=== PATIENT | female | born 1980 | race African-American/Black ===

== ENCOUNTER 2019-02-20 16:28 | Emergency (ER) | payer OTHER ==
[~2019-02-20] VITALS: Ht 152.4 cm; Wt 64.0 kg
[~2019-02-20 16:28] MED LIST: IBUPROFEN600 MG ORAL; NKM
[2019-02-20] MEDS ORDERED: PRENATAL 19 TA1 EAC1 PO (16:42)
--- NOTE | 2019-02-20 16:54 | Emergency Room Report ---
History of Present Illness General Chief Complaint: Complications Source: Patient Present Illness HPI Patient is a 39-year-old female who is G2, P1 at approximately 6 months . Patient presented after a mechanical fall. Patient reports falling out of bed. She does not report falling onto her stomach. She reports having some decreased movement. She denies any vaginal bleeding. She had not been having any uterine contractions. She reports having some vaginal discomfort which she describes a pressure sensation. She denies any leakage of fluid. She is scheduled to deliver at [facility]. Allergies: Coded Allergies: No Known Allergies (Unverified , 02/20/16) Patient History Past Medical History: see triage record Last Menstrual Period: 09/2018 Now: Yes : 2 Para: 1 Reviewed Nursing Documentation: PMH: Agreed; PSxH: Agreed Nursing Documentation-PM Past Medical History: No Stated History Review of Systems All Other Systems: negative except mentioned in HPI Physical Exam Vital Signs Date Time Temp Pulse Resp B/P (MAP) Pulse Ox O2 Delivery O2 Flow Rate FiO2 02/20/19 16:36 98.4 101 18 113/71 (85) 99 Room Air General Appearance: well appearing, no apparent distress, alert, non-toxic Head: normocephalic, atraumatic ENT: hearing grossly normal, normal voice Neck: full range of motion, supple Respiratory: no respiratory distress, speaking full sentences Cardiovascular #1: normal inspection Gastrointestinal: normal inspection, normal bowel sounds, non tender, other - gravid uterus Musculoskeletal: normal inspection, no calf tenderness Neurologic: normal inspection, alert, oriented x3, responsive, normal gait Psychiatric: mood/affect normal Skin: no rash Medical Decision Making Diagnostic Impression: Primary Impression: Complication of ER Course Patient presented for lower back pain after a fall. Differential diagnosis include was not limited to demise, premature labor, lumbar contusion among others. Patient noted to be amatory without assistance. She is noted to be with twin gestations. Bedside ultrasound showed adequate movement as well as to active fetus with heart tones in the 160s. Patient does not have any leakage of fluid. She is advised to follow-up with her [facility] or [facility] for recheck. Patient was advised to recheck at the hospital if she began having any contractions leakage of fluid bleeding or other concerns.Patient was advised that we do not have labor and delivery facilities. Last Vital Signs Date Time Temp Pulse Resp B/P (MAP) Pulse Ox O2 Delivery O2 Flow Rate FiO2 02/20/19 16:36 98.4 101 18 113/71 (85) 99 Room Air Status: improved Disposition: HOME, SELF-CARE Condition: Stable Samm Shea MD Feb 20, 2019 16:53
--- NOTE | 2019-02-20 17:03 | NUR ---
ED Nurse Note: pt walked in from home c/o s/p fall; patient fell out of bed and caught herself in couch @ 1100; no movement since then; patient c/o vaginal pressure pain, 8/ [id number]. Reports no vaginal bleeding or discharge. [facility] alves done US done by Dr. Shea no nsg orders .
[2019-02-20 17:07] VITALS: BP 113/71
--- NOTE | 2019-02-20 17:08 | NUR ---
ED Nurse Note: Pt cleared by health care Provider for discharge. DC instructions was given and explained to pt and verbalized understanding of teachings. All medical deviecs such as ID band removed. Pt is AAO x4, ambulatorywith steady gait and left with all personal belongings.
== END 2019-02-20 17:14 | disposition home or self-care (01) ==
LOC: EMR 16:51
DX: O26.92 Pregnancy related conditions, unspecified, second trimester (principal); Z3A.00 Weeks of gestation of pregnancy not specified
CPT/HCPCS: 99282